=== PATIENT | female | born 1990 | race Caucasian/White ===

== ENCOUNTER 2021-08-16 19:39 | Emergency (ER) | payer SELFPAY ==
[~2021-08-16 19:39] MED LIST: Iopamidol 370 76% 100 ML VIAL ONE
[2021-08-16 20:37] LABS: ALT (SGPT) 17 U/L (8-55); AST (SGOT) 20 U/L (5-34); Albumin 3.6 g/dL (3.5-5.0); Alkaline Phosphatase 39 U/L (40-110); Anion Gap 11 mmol/L (10-20); BUN (Urea Nitrogen) 8 mg/dL (7.0-18.7); Bilirubin, Total 0.2 mg/dL (0.2-1.2); Calc. Creatinine Clearance 0 mL/min (70-130); Calcium 8.6 mg/dL (7.8-10.44); Carbon Dioxide 21 mmol/L (22-29); Glucose 129 mg/dL (70-105); Protein, Total 6.6 g/dL (6.0-8.3)
[2021-08-16 20:39] LABS: Chloride 106 mmol/L (98-107); Sodium 135 mmol/L (136-145)
[2021-08-16 20:49] LABS: Band 15 % (5-11); Hemoglobin 12.9 g/dL (12.0-16.0); Lymphocytes 15 % (21-51); MDiff Complete? YES; Mean Corpuscular HGB CONC 35.6 g/dL (32.0-36.0); Mean Corpuscular Hemoglobin 32.1 pg (27.0-31.0); Mean Corpuscular Volume 90.4 fL (78.0-98.0); Neutrophil 70 % (42-75); Platelet Count 415 thou/uL (130-400); RBC Distribution Width 11.6 % (11.5-14.5); Red Blood Cell (RBC) Count 4.02 mill/uL (4.20-5.40); White Blood Cell (WBC) Count 23.9 thou/uL (4.8-10.8)
[2021-08-16] MEDS ORDERED: Morphine 4 MG/ML VIAL ONE (20:52)
== END 2021-08-17 00:33 | disposition home or self-care (01) ==
LOC: ERS 19:39
DX: O9A.212 Injury, poisoning and certain other consequences of external causes complicating pregnancy, second trimester (principal); S02.40DA Maxillary fracture, left side, initial encounter for closed fracture; S02.2XXA Fracture of nasal bones, initial encounter for closed fracture; S30.810A Abrasion of lower back and pelvis, initial encounter; S29.9XXA Unspecified injury of thorax, initial encounter; W55.29XA Other contact with cow, initial encounter; Z23 Encounter for immunization; Z3A.18 18 weeks gestation of pregnancy
CPT/HCPCS: 36415; 70450; 70486; 70498; 71260; 72125; 76815; 80053; 85025; 86900; 86901; 90471; 96374; G0390; J2270; Q9967